=== PATIENT | male | born 1965 | race Caucasian/White ===

== ENCOUNTER 2016-05-22 14:06 | Emergency (ER) | payer SELFPAY ==
[2016-05-22] MEDS ORDERED: OPTIRAY 350 100 ML VIAL HMH IV ONE (14:07)
[2016-05-22] MEDS ORDERED: ONDANSETRON 4 MG VIAL ONE (15:25)
[2016-05-22] MEDS ORDERED: DILAUDID 1 MG/ML AMP ONE (15:25)
[2016-05-22] MEDS ORDERED: SODIUM CHLORIDE 0.9% 1,000 ML ONE (15:29)
[2016-05-22] MEDS ORDERED: KETOROLAC 30 MG/ML VIAL ONE (15:33)
[2016-05-22] MEDS ORDERED: MORPHINE 4 MG/ML SYR ONE (17:50)
== END 2016-05-22 18:33 | disposition home or self-care (01) ==
LOC: ER 14:06
DX: N13.2 Hydronephrosis with renal and ureteral calculous obstruction (principal)
CPT/HCPCS: 36415; 74177; 80053; 81003; 83690; 85025; 96361; 96374; 96375